=== PATIENT | female | born 1980 | race Caucasian/White ===

== ENCOUNTER 2019-07-02 01:13 | Emergency (ER) | payer OTHER, MEDICAID, SELFPAY ==
[2019-07-02 01:14] VITALS: BP 117/72; PULSE 81; RESP 17; TEMP 37.2; O2SAT 100; BMI 24.2
--- NOTE | 2019-07-02 01:20 | NURSING ---
PT STATED TO ME THAT SHE DID NOT WANT TO FILE A WORK COMP.
--- NOTE | 2019-07-02 01:26 | ED.VISSUMM ---
- ER Visit Summary Date of Service: 07/02/19 Chief Complaint: [Laceration right index finger] History of Present Illness: The patient is a 38 F presents to the emergency department with a laceration to her right index finger that occurred just prior to arrival in the emergency department. Patient states that while at work she was cleaning the deleon and hit a piece of metal that was on the corner of the wall and sustained a laceration to the finger. Patient is right-hand dominant. Patient is up-to-date on tetanus. Patient states that she did not think much of the cut but work made her come and get evaluated.] Physical Examination: [Right index finger-patient has a flap-like laceration over the distal phalanx palmar aspect of the digit that is almost a complete skin avulsion the flap is held on by a very small thin piece of skin. No active bleeding. No bony tenderness on exam. Neurovascular intact.] Test Results: [None indicated] Emergency Department Course and Treatment: [I discussed with patient possible treatment options such as Steri-Strips and clean dressing versus digital block and placing 2 single interrupted sutures to keep the flap in place to limit bleeding. She understands that the flap may and the wound will heal secondary intention. Patient opted for Steri-Strip repair. She does not want to file this under Workmen's Comp.] Treatment Plan: [Follow-up with primary care physician in 3 to 5 days for wound check.] Disposition: [Discharged home stable condition] Impression: [Right index finger 1 cm flap [id number] repair] This note was generated with [employer] dictation software. It may contain incorrect words, spelling, and punctuation that were not noted in review of the chart prior to signing ED Disposition - Plan for ED Patient: Referrals: Richard Ni MD [Primary Care Provider] -
--- NOTE | 2019-07-02 01:29 | ED.DEP ---
ED Disposition - Plan for ED Patient: Instructions: LACERATION, Extrem (Suture, Staple or Tape), LACERATION, Small/superficial, Not sutured Referrals: Richard Ni MD [Primary Care Provider] - 3-5 Days
[2019-07-02 02:02] VITALS: RESP 18
== END 2019-07-02 02:02 | disposition home or self-care (01) ==
LOC: ED 01:47
PROVIDERS: Emergency Provider Emergency Medicine; Family Provider Family Medicine; PCP Family Medicine
DX: S61.210A Laceration without foreign body of right index finger without damage to nail, initial encounter (principal); W22.01XA Walked into wall, initial encounter; Y93.E9 Activity, other interior property and clothing maintenance; Y92.89 Other specified places as the place of occurrence of the external cause; Y99.0 Civilian activity done for income or pay; Z72.0 Tobacco use
CPT/HCPCS: 12001; 99282

== ENCOUNTER 2021-03-15 18:15 | Emergency (ER) | payer MEDICAID, SELFPAY ==
[2021-03-15 18:16] VITALS: BP 125/70; PULSE 69; RESP 15; TEMP 36.6; O2SAT 99; BMI 26.7
--- NOTE | 2021-03-15 18:34 | CT_ITS ---
EXAMINATION : Head CT w/out contrast HISTORY : Pituitary adenoma COMPARISON : None. TECHNIQUE : Multiple contiguous axial images were obtained from the skull base to the vertex without intravenous contrast. A radiation dose optimization technique was used for this scan. FINDINGS : The ventricles and sulci are normal in size. There is no evidence for acute intracranial hemorrhage, mass effect, or midline shift. There is no extra-axial fluid collection. There is normal peterson-white differentiation, without CT evidence of acute ischemia or infarct. The skull base and calvarium are unremarkable. The orbits are unremarkable. The paranasal sinuses are clear. The mastoid air cells are well-aerated. The soft tissues are unremarkable. CT/Brain/Head without Contrast IMPRESSION: No acute intracranial abnormality. This examination is not sensitive for pituitary adenomas. A CT Pituitary and Sella Turcica with and without contrast would be a more appropriate study. Electronically Signed: Kristofer Vargas MD at 19:40 EDT Tel , Service support ,
[2021-03-15 19:05] LABS: Absolute Lymphocyte Count 1.92 X10^3/uL (0.83-4.51); Basophil# 0.05 X10^3/uL; Basophil% 0.7 % (0-1); Eosinophils% 14.9 % (0-5); Hematocrit 41.6 % (37-47); Hemoglobin 13.6 g/dL (12.0-15.0); Lymphocyte # 1.92 X10^3/ul (0.83-4.51); Lymphocyte % 26.1 % (19-41); Mean Corp Hgb Conc 32.7 g/dL (32-36); Mean Corpuscular Hgb 29.6 pg (27.0-32.0); Mean Corpuscular Volume 90.4 fL (81-99); Mean Platelet Vol. 10.1 fl (6.2-12.0); Monocyte# 0.31 X10^3/uL; Monocyte% 4.2 % (0-10); NRBC Flagged by Analyzer 0 % (0-5); Neutrophil # 3.96 X10^3/uL (2.7-7.7); Neutrophil % 53.8 % (47-70); Platelet Count 227 K/mm3 (150-450); RBC Distribution Width CV 13.1 % (11.6-14.6); RBC Distribution Width SD 43.2 fl (35.1-43.9); White Blood Count 7.4 K/mm3 (4.4-11.0)
[2021-03-15] MEDS: 0.9% Normal Saline 1,000 ML 1000 ML IV (19:13)
[2021-03-15] MEDS: Ondansetron 4 MG/2 ML Vial IV (19:13)
[2021-03-15 19:14] VITALS: BP 112/76; PULSE 50; RESP 14; O2SAT 100
[2021-03-15 19:18] LABS: Internal QC Validated? YES +Cl - CLEAR BKGD; Pregnancy, Serum, hCG Quali. NEGATIVE Negative
[2021-03-15 19:24] LABS: ALB/GLOB Ratio 1.1 RATIO (0.9-2.4); AST(SGOT) 13 U/L (15-37); Alanine Aminotransfer ALT/SGPT 33 U/L (13-56); Alkaline Phosphatase 100 U/L (45-117); Anion Gap 6 (5-15); BUN 14 mg/dL (7-18); BUN/Creat Ratio 17.7 RATIO (10-20); Calcium,Total 8.6 mg/dL (8.5-10.1); Chloride 107 mmol/L (98-107); Creatinine, Serum 0.79 mg/dL (0.55-1.02); EST Glomerular Filtration Rate 86 mL/min (>60); Est Glom Filt Rate - Afr Amer 103 mL/min (>60); Estimated Creatinine Clearance 88.62 ml/min; Globulin 3.5 g/dL (2.2-4.2); Glucose 93 mg/dL (74-106); Potassium 3.3 mmol/L (3.5-5.1); Protein, Total 7.5 g/dL (6.4-8.2); Sodium Level 141 mmol/L (136-145)
[2021-03-15 19:30] LABS: Bacteria 0 SEEN /hpf (None Seen); Mucous, Urine 0 SEEN /hpf (<or=2+); White Blood Cells 0 SEEN /hpf (0-5)
[2021-03-15 19:32] LABS: Color, Urine Yellow (Yellow); Glucose, Dipstick Normal (Normal); Ketone-Dipstick Negative (Negative); Leukocyte Esterase-Dipstick Negative /ul (Negative); Nitrite-Dipstick Negative (Negative); Occult Blood-Urine 50 /ul (Negative); Protein-Dipstick Negative (Negative); Specific Gravity, Urine 1.015 (1.002-1.030); Urine Bilirubin Dipstick Negative (Negative); Urine Clarity Clear (Clear); Urine Urobilinogen Normal (Normal)
[2021-03-15 19:39] LABS: Red Blood Cells-Urine 0-5 SEEN /hpf (0-5); Squamous Epithelial Cells - UA 0-5 SEEN /hpf (5-10)
--- NOTE | 2021-03-15 20:31 | ED.DCSUM_ITS ---
- ER Visit Summary Date of Service: 03/15/21 Chief Complaint: Feel weird History of Present Illness: The patient is a [address] Ni. She reports that she has a history of pituitary adenoma diagnosed by an MRI last year. She denies any recent change in her vision. States that it seems to have been worsening over the past year. Patient reports that over the past week she has had generalized weakness. She also discussed complains of dysuria and frequent urination. She has had nausea without vomiting. She denies any other complaints. Physical Examination: Vitals: Stable. Afebrile. General: Well-nourished and well-developed. Head: Normocephalic atraumatic. Neck: Supple, no lymphadenopathy. No JVD. Nontender. Cardiovascular: Regular rate and rhythm. No murmurs. Respiratory: No respiratory distress. Clear to auscultation bilaterally. Abdominal: Soft, nontender, nondistended, normal bowel sounds. No guarding, rebound, or peritoneal signs. Back: Nontender. Extremities: Nontender, no edema. Skin: Normal color, no rash. Neurologic: Alert and oriented ?3. Cranial nerves II through XII are intact. Normal strength and sensation. Psych: Normal affect. Test Results: CBC shows eosinophils of 15. Chem-7 shows potassium of 3.3. LFTs show an AST of 13. UA is negative. test is negative. Prolactin is 1.0. TSH, free T4, and free T3 are all normal. Clinical Impression(s) from Imaging Studies Brain CT 03/15/21 18:34 IMPRESSION: No acute intracranial abnormality. This examination is not sensitive for pituitary adenomas. A CT Pituitary and Sella Turcica with and without contrast would be a more appropriate study. Electronically Signed: Kristofer Vargas MD at 19:40 EDT Tel , Service support , Emergency Department Course and Treatment: Patient is resting comfortably. She refused pain or nausea medications. Treatment Plan: Patient will be discharged instructed to follow-up with her primary care physician in 3 to 5 days for another exam. Return to the emergency department for any worsening symptoms. Disposition: To home in improved and stable condition. Impression: 1. Generalized weakness, uncertain cause. 2. History of pituitary adenoma. 3. Sinus bradycardia. This note was generated with [employer] dictation software. It may contain incorrect words, spelling, and punctuation that were not noted in review of the chart prior to signing ED Disposition - Plan for ED Patient: Disposition: Home or Assisted Living Instructions: ED Weakness (Uncertain Cause) Referrals: Richard Ni MD [Primary Care Provider] - 3-5 Days
[2021-03-15 21:01] VITALS: BP 113/78; PULSE 60; RESP 15; O2SAT 100
[2021-03-15 21:18] LABS: Free T3 2.4 pg/mL (2.18-3.98); T4 Free Direct 0.83 ng/dL (0.76-1.46); Thyroid Stim Hormone (TSH) 2.47 uIU/mL (0.358-3.74)
== END 2021-03-15 21:02 | disposition home or self-care (01) ==
LOC: ED 18:48
PROVIDERS: Emergency Provider Emergency Medicine; PCP Family Medicine
DX: R53.1 Weakness (principal); R00.1 Bradycardia, unspecified; Z86.018 Personal history of other benign neoplasm; R11.0 Nausea
CPT/HCPCS: 70450; 80053; 81001; 84146; 84439; 84443; 84481; 84703; 85025; 96361; 96374; 99284; J2405

== ENCOUNTER 2021-04-17 20:26 | Emergency (ER) | payer MEDICAID, SELFPAY ==
[2021-04-17 20:26] VITALS: BP 126/71; PULSE 77; RESP 15; TEMP 36.9; O2SAT 99; BMI 27.1
--- NOTE | 2021-04-17 21:01 | EX.ED.VIS.HA ---
HPI History of Present Illness Chief Complaint: Other, Pain/Inj Onset/Context/Timing Onset: Yesterday Context: Gradual and Onset Timing: Continuous Quality -Headache: Positive for Throbbing Location: Bifrontal/bitemporal, retro-orbital, worse on left Current Severity: Moderate Maximum Severity: Moderate Worsened by: a little w/ light Relieved by: nothing. tried ibuprofen. Associated Symptoms/Injury Associated Symptoms: Positive for Nausea, Blurred Vision (some diplopia only w/ trying to read characters) and Photophobia; Negative for Fever, Vomiting, Sore Throat, Numbness, Tingling and Visual Loss Injury - VANN: Negative for Direct Trauma and Fall Narrative Narrative: Patient presenting with gradual onset headache she has had all day today that started last night, she has a history of migraines with auras, states this 1 has some similar features but is a little unusual. She has some discomfort radiating into her left ear which is bothering her. She presents out of concern since the headache is different because she has a pituitary mass that was diagnosed as a prolactinoma 5 or 6 years ago. She has had routine imaging, she had an MRI 2 or 3 weeks ago that showed that it flattened and may be a little smaller, she is due to follow-up with her specialist in 2 weeks to review this and the next recommendations. She denies any focal neurologic symptoms below the neck in the past 24 hours. She denies any fevers, chills, congestion, cough, shortness of breath. PFSH PFSH Medical History Anxiety Chronic pain Depression Intracranial hypertension Prolactinoma Smoker Home Medications cabergoline 0.5 mg PO QWEEK 03/15/21 [History Last Taken Unknown] paroxetine HCl 30 mg PO DAILY 03/15/21 [History Last Taken Unknown] Allergy/AdvReac Type Severity Reaction Status Date / Time Penicillins [PCN] Allergy Anaphylaxis Verified 04/17/21 20:32 Social History Smoking Status: Current every day smoker tobacco type: cigarettes ROS ROS ED Constitutional Constitutional ED: Denies chills or fever(s) Eyes Eyes: Reports as per HPI, blurry vision, diplopia and photophobia; Denies discharge from eye(s), loss of peripheral vision or tunnel vision ENT ENT ED: Reports ear pain left; Denies discharge from eye(s) or sore throat Cardiovascular Cardiovascular: Denies chest pain or palpitations Respiratory/Chest Respiratory/Chest: Denies cough or dyspnea Gastrointestinal Gastrointestinal: Reports nausea; Denies abdominal pain, diarrhea or vomiting Genitourinary Genitourinary ED: Denies dysuria or urinary frequency Musculoskeletal Musculoskeletal: Denies back pain or myalgias Integumentary Denies abscess or rash Neurologic Neurologic: Reports headache(s); Denies paresthesias or weakness EXAM Physical Exam Const Vital Signs: 04/17/21 20:26 04/17/21 20:40 Temperature 98.5 F Temperature Source Temporal Pulse Rate 77 Respiratory Rate 15 Respiratory Effort Normal Respiratory Pattern Normal Blood Pressure 126/71 H Blood Pressure Mean 89 Pulse Ox 99 Oxygen Delivery Method Room Air HEENT Reports normocephalic and moist mucous membranes HEENT Narrative: Right TM and EAC are normal. Left TM not visible due to deep hard cerumen impaction. No pain with pulling on the pinna or pushing on the tragus. No periorbital lymphadenopathy. atraumatic Eyes PERRL, EOMs intact bilaterally and conjunctivae normal Eyes Narrative: mild photophobia. visual gibbons all grossly intact. Neck no lymphadenopathy, supple and no meningeal signs Resp normal respiratory effort and clear to auscultation bilaterally GI non-tender and non-distended Palpation: soft Extremity normal to inspection and full ROM Neuro oriented x3 and CN's II-XII intact bilaterally Sensorium / Orientation: awake and alert Coordination / Balance: [id number] test normal, does not sway with eyes open and Romberg test negative Speech: speech normal Gait (Neuro): normal gait Motor Exam: strength 5/5 throughout Psych mental status grossly normal Skin Lesions: no lesions Rashes: no rashes MDM MDM MDM Narrative Medical decision making narrative: CT was obtained shows nothing acute as below. She was given a dose of Reglan 10 mg IM, she responded very well to 10 her headache is most completely gone she is feeling much better. This is more consistent with a migraine headache. Patient was reassured advised to follow-up with her specialist as scheduled in 2 weeks. She is comfortable with that plan. Radiography Diagnostic Testing: Radiology Impression Brain CT 04/17/21 21:17 IMPRESSION: Negative head/brain CT without intravenous contrast. There is been no change from the reference examination. Individualized dose optimization techniques were used for this CT. at 2133 Reported and signed by: Ceasar Decker MD Electronically Signed: Ceasar Decker MD at 21:32 EDT Tel , Service support , Discharge Plan Triage Chief Complaint: Other, Pain/Inj ED Provider: Moisés Cabrera Dx/Rx/DC Orders Clinical Impression: Migraine headache with aura Instructions: ED, Migraine (Classical) Prescriptions: No Action paroxetine HCl 20 MG tablet 30 mg PO DAILY RF: 0 cabergoline 0.5 MG tablet 0.5 mg PO QWEEK RF: 0 Primary Care Provider: Richard Ni Referrals: Richard Ni MD [Primary Care Provider] - (And/or your specialist as scheduled) Disposition Disposition: Home, self care
--- NOTE | 2021-04-17 21:17 | CT_ITS ---
EXAM: CT HEAD WITHOUT INTRAVENOUS CONTRAST : 1980 CLINICAL INDICATION: headache, pituitary tumor TECHNIQUE: Multiple axial images were obtained of the head without intravenous contrast. This CT exam was performed using one or more of the following dose reduction techniques: automated exposure control, adjustment of the mA and/or kV according to patient size, and/or use of iterative reconstruction technique. This report was created using [employer] report generation technology. COMPARISON: 03/15/2021 FINDINGS: BRAIN AND EXTRA-AXIAL SPACES: Unremarkable. No intra- or extra-axial hemorrhage. No evidence of acute infarct. No intracranial mass or mass effect. There is preservation of the whitehead/white matter interface. Posterior fossa structures are unremarkable. Ventricles are appropriate for age. No hydrocephalus. Basal cisterns are patent. BONES/JOINTS: Unremarkable. No discrete lytic or blastic abnormalities. SINUSES: Unremarkable as visualized. Clear. MASTOID AIR CELLS: Unremarkable. Clear. ORBITS: Visualized globes, extraocular muscles, optic nerves and retrobulbar fat appear unremarkable. CT/Brain/Head without Contrast IMPRESSION: Negative head/brain CT without intravenous contrast. There is been no change from the reference examination. Individualized dose optimization techniques were used for this CT. at 2133 Reported and signed by: Ceasar Decker MD Electronically Signed: Ceasar Decker MD at 21:32 EDT Tel , Service support ,
[2021-04-17] MEDS: Metoclopramide 10 MG/2 ML Vial IM (21:29)
[2021-04-17 22:34] VITALS: BP 122/80; PULSE 82; RESP 15; O2SAT 98
== END 2021-04-17 22:34 | disposition home or self-care (01) ==
PROVIDERS: Emergency Provider Emergency Medicine; PCP Family Medicine
DX: G43.109 Migraine with aura, not intractable, without status migrainosus (principal); F17.210 Nicotine dependence, cigarettes, uncomplicated; F32.9 Major depressive disorder, single episode, unspecified; F41.9 Anxiety disorder, unspecified; Z86.018 Personal history of other benign neoplasm
CPT/HCPCS: 70450; 99284

== ENCOUNTER → 2021-10-25 17:05 | Outpatient (CLI) | payer MEDICAID, SELFPAY ==
[2021-10-25 17:35] LABS: D-Dimer Quantitative (DVT/PE) <= 0.27 FEU/ug/m (0.27-0.49)
== END ==
PROVIDERS: PCP Family Medicine; Visit Provider Family Medicine
DX: R06.02 Shortness of breath (principal)
CPT/HCPCS: 85379

== ENCOUNTER 2021-11-22 16:52 | Emergency (ER) | payer MEDICAID, SELFPAY ==
[2021-11-22 16:53] VITALS: BP 128/80; PULSE 66; RESP 16; TEMP 36.3; O2SAT 100; BMI 23.8
--- NOTE | 2021-11-22 19:45 | ED.RN ---
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
--- NOTE | 2021-11-23 17:00 | EKG12_ITS ---
Test Reason : CP Blood Pressure : / mmHG Vent. Rate : 053 BPM Atrial Rate : 053 BPM P-R Int : 140 ms QRS Dur : 088 ms QT Int : 444 ms P-R-T Axes : 057 035 014 degrees QTc Int : 416 ms Sinus bradycardia Otherwise normal ECG Confirmed by ULICES WORKMAN, BHARATHI ([id number]), photographic editor LARISSA BONILLA ([id number]) on 11/24/2021 11:46:25 AM Referred By: CHRISTINE/FELICIA Confirmed By:BHARATHI ELENA MD
== END 2021-11-22 19:45 | disposition left against medical advice (07) ==
LOC: ED 20:01
PROVIDERS: PCP Family Medicine
DX: R07.9 Chest pain, unspecified (principal)
CPT/HCPCS: 93005

== ENCOUNTER 2024-02-26 18:33 | Emergency (ER) | payer OTHER, SELFPAY ==
[2024-02-26 18:33] VITALS: BP 119/87; PULSE 80; RESP 19; TEMP 35.8; O2SAT 99
[2024-02-26 18:34] VITALS: BP 119/87; PULSE 80; RESP 19; TEMP 35.8; O2SAT 99; BMI 25.6
--- NOTE | 2024-02-26 19:01 | EX.ED.VIS.EY ---
HPI History of Present Illness Chief Complaint: Eye Problem Onset/Context/Timing Location: Right Eye Onset: Days Context: Gradual Onset Timing: Intermittent Current Severity: Mild Maximum Severity: Mild Associated Symptoms Associated Symptoms - Eyes: Negative for Foreign body sensation, Itching or Matting History of injury: No Visual correction: None Narrative Narrative: 43-year-old female history of a pituitary tumor. Does not wear glasses nor contacts. Never had eye surgery. States her right eye for the last 2 to 3 days has been slightly uncomfortable. She said it feels like there is a thin film over. Very minimal discharge. No crusting. No trauma or injury. No foreign body sensation. No swelling. Had a similar episode in the past that resolved on its own and was never evaluated for. She denies any recent illness. Prior similar symptoms: Yes Recent Illness/Hospitalization: No PFSH PFSH Medical History Anxiety Chronic pain Depression Intracranial hypertension Prolactinoma Smoker Home Medications cabergoline 0.5 mg tablet 0.5 mg PO QWEEK 03/15/21 [History Last Taken Unknown] paroxetine HCl 20 mg tablet 30 mg PO DAILY 03/15/21 [History Last Taken Unknown] Allergy/AdvReac Type Severity Reaction Status Date / Time Penicillins [PCN] Allergy Anaphylaxis Verified 04/17/21 20:32 Social History Smoking Status: Current every day smoker tobacco type: cigarettes ROS ROS ED ROS Narrative Denies recent illness. Review of Systems ROS Unobtainable: Denies due to encephalopathy Constitutional Constitutional ED: Denies chills or fever(s) Eyes Eyes: Denies blurry vision ENT ENT ED: Denies ear pain Cardiovascular Cardiovascular: Denies chest pain Respiratory/Chest Respiratory/Chest: Denies cough Gastrointestinal Gastrointestinal: Denies abdominal pain Genitourinary Genitourinary ED: Denies dysuria Musculoskeletal Musculoskeletal: Denies arthralgias Integumentary Denies abscess Neurologic Neurologic: Denies headache(s) Psychiatric Psychiatric: Denies anxiety Endocrine Endocrinology: Denies polydipsia or polyphagia Hematologic/Lymphatic Hematologic/Lymphatic: Denies easy bleeding, easy bruising or lymphadenopathy Allergic/Immunologic Allergic/Immunologic ED: Denies mouth swelling, tongue swelling or urticaria EXAM Physical Exam Narrative Exam Narrative: Well-appearing 43-year-old female. Vital signs stable afebrile. HEENT exam pupils are round reactive light. Equal. Extra motions are intact. Upper and lower eyelids are unremarkable. No swelling. No trauma. No discharge or crusting. No foreign body. No injection. There is no orbital periorbital cellulitis. No swelling or proptosis. No preauricular lymphadenopathy. Eyes look similar. No facial rash or trauma. Normal eye exam. Neck nontender. Lungs clear. Heart regular rhythm. Otherwise exam normal. Const Vital Signs: 02/26/24 18:34 02/26/24 18:33 Temperature 96.5 F L 96.5 F L Temperature Source Temporal Temporal Pulse Rate 80 80 Respiratory Rate 19 H 19 H Blood Pressure 119/87 H 119/87 H Blood Pressure Mean 97 97 Pulse Ox 99 99 Oxygen Delivery Method Room Air Room Air Positive well nourished and well developed; Negative for obese, cachectic, contractures or unkempt General Appearance ED: well developed and NAD; Negative for unkempt, cachectic or contractures Nutritional Appearance: Negative for cachectic or obese HEENT atraumatic; Negative for trauma or tenderness Nose: external nose normal and nares normal Eyes Eyes Narrative: Normal eye exam bilaterally. Neck no lymphadenopathy, supple and no JVD General: Negative for tenderness Resp normal respiratory effort, no retractions, no use of accessory muscles and clear to auscultation bilaterally Cardio regular rate, regular rhythm, S1 normal heart sound, S2 normal heart sound and no murmurs Jugular Venous Distention: Negative for other GI non-tender, non-distended and no masses Inspection: Negative for other Auscultation: normoactive bowel sounds Palpation: soft Back/Spine no CVA tenderness General Back: Negative for CVA tenderness Extremity normal to inspection General Extremety ED: Negative for edema or other findings General Extremity: Negative for edema or other findings Neuro oriented x3, CN's II-XII intact bilaterally, moves all extremities and no sensory deficits noted Sensorium / Orientation: alert, oriented to person, oriented to place and oriented to time; Negative for orientation impaired or other Motor Exam: strength 5/5 throughout Psych Appearance: Negative for unkempt Attitude: No agitated Mood & Affect: Negative for depressed, anxious or tearful Skin no wounds Lesions: no lesions Rashes: no rashes Trauma: Negative for abrasion or laceration MDM MDM MDM Narrative Medical decision making narrative: 43-year-old female who is normal bilateral eye exam. No signs of infection or discharge. No signs of foreign body or trauma. Visual acuity being obtained. Pastries abdominal going to be placed in her right eye. She will follow-up with ophthalmology. She does not wear glasses or contacts. She believes she may need glasses. She is never had eye surgery. Visual acuity was 20/50 in the left eye. 20/200 right eye that was affected. And bilaterally 20/50. Discharge Plan Triage Chief Complaint: Eye Problem ED Provider: Favian Matson Dx/Rx/DC Orders Clinical Impression: Acute right eye pain Instructions: ED Pain, Acute, Uncertain Cause Prescriptions: No Action paroxetine HCl 20 MG tablet 30 mg PO DAILY cabergoline 0.5 MG tablet 0.5 mg PO QWEEK Primary Care Provider: Richard Ni Referrals: Sarah Staley MD [Med Staff - Active Staff] - As soon as possible Richard Ni MD [Primary Care Provider] - Activity Restrictions/Additional Instructions: Your eye exam is otherwise normal. There is no signs of infection or foreign body. Eye ointment to your right eye twice a day. Follow-up with the eye doctor for further evaluation. Disposition Disposition: Home, Self Care Discharge Date/Time: 02/26/24 19:24
[2024-02-26] MEDS: Neomycin/Bacitracin/Polymyxin Opth. Ointment 1 APPLIC RIGHT EYE (19:22)
== END 2024-02-26 19:24 | disposition home or self-care (01) ==
PROVIDERS: Emergency Provider Emergency Medicine; PCP Family Medicine; Visit Provider Emergency Medicine
DX: H57.11 Ocular pain, right eye (principal); F17.210 Nicotine dependence, cigarettes, uncomplicated; F41.9 Anxiety disorder, unspecified; F32.A Depression, unspecified; Z79.899 Other long term (current) drug therapy
CPT/HCPCS: 99283